=== PATIENT | male | born 1945 | race Two or more races ===

== ENCOUNTER 2021-09-28 13:25 | Emergency (ER) | payer OTHER ==
[~2021-09-28] VITALS: Ht 162.6 cm; Wt 63.0 kg
[2021-09-28 14:25] LABS: Urine Bacteria FEW /hpf (None Seen); Urine Blood Negative /uL (Negative); Urine Mucus FEW (None Seen); Urine Specific Gravity 1.018 (1.001-1.035); Urine WBC 6 /hpf (0 - 3)
[2021-09-28 14:39] LABS: INR 1.25 (0.9-1.15); Partial Thromboplastin Time 27.6 sec (23.6-33.0)
[2021-09-28 14:47] LABS: BUN/Creatinine Ratio 10.1; Calcium 8.5 mg/dL (8.5-10.1); Potassium 3.8 mmol/L (3.5-5.1)
[2021-09-28] MEDS ORDERED: IOHEXOL 300 MG/ML 100ML BOTTLE IJ ONE (15:08)
[2021-09-28 15:23] LABS: Basophils # (auto) 0.1 10 ^3/uL (0-0.2); Basophils % (auto) 0.9 % (0.0-2.0); Eosinophils # (auto) 0.1 10 ^3/uL (0-0.8); Eosinophils % (auto) 1.1 % (0.0-7.0); Hematocrit 38.7 % (41.0-53.0); Hemoglobin 13.7 g/dL (13.5-17.5); Lymphocytes % (auto) 20.1 % (10.0-50.0); Mean Corpuscular Hemoglobin 32.4 pg (28.0-32.0); Mean Corpuscular Hgb Conc. 35.3 g/dL (32.0-36.0); Mean Corpuscular Volume 91.8 fL (80.0-100.0); Monocytes # (auto) 1.7 10 ^3/uL (0-1.3); Monocytes % (auto) 17.2 % (0.0-12.0); Neutrophils # (auto) 5.9 10 ^3/uL (1.6-8.6); Neutrophils % (auto) 60.7 % (37.0-80.0); Nucleated Red Blood Cells % 0.1 %; Red Blood Cells 4.22 10^6/uL (4.5-5.90); Red Cell Distribution Width 13.9 % (11.8-14.3); White Blood Cell 9.8 10^3/uL (4.4-10.8)
[2021-09-28] MEDS ORDERED: SODIUM CHLORIDE 0.9% 1,000 ML IV ONE (16:15)
[2021-09-28 18:54] VITALS: BP 134/64
== END 2021-09-28 18:55 | disposition home or self-care (01) ==
LOC: ER 13:25
DX: R31.0 Gross hematuria (principal); N40.0 Benign prostatic hyperplasia without lower urinary tract symptoms; R94.31 Abnormal electrocardiogram [ECG] [EKG]
CPT/HCPCS: 36415; 74177; 80048; 81001; 84484; 85025; 85610; 85730; 86850; 86900; 86901; 93005; 96360; 99285; Q9967

== ENCOUNTER 2023-03-11 10:16 | Emergency (ER) | payer OTHER ==
[~2023-03-11] VITALS: Ht 167.6 cm; Wt 56.4 kg
[2023-03-11] MEDS ORDERED: DOCUSATE SOD 100 MG CAP PO ONE (11:30)
[2023-03-11] MEDS ORDERED: DOCU-94 PO (12:43)
[2023-03-11 13:04] VITALS: BP 120/62
== END 2023-03-11 13:09 | disposition home or self-care (01) ==
LOC: ER 10:16
DX: K59.00 Constipation, unspecified (principal)
CPT/HCPCS: 74018